=== PATIENT | male | born 1995 | race Caucasian/White ===

== ENCOUNTER 2022-09-22 | Emergency (ER) | payer SELFPAY ==
[~2022-09-22] VITALS: Ht 188 cm; Wt 145.0 kg
[2022-09-22] MEDS ORDERED: EPIPEN 2-P0.3 MG/0.3 SC (01:16)
[2022-09-22 01:37] VITALS: BP 107/84
== END 2022-09-22 02:16 | disposition home or self-care (01) | DRG 918 ==
LOC: ED
DX: T63.4 Toxic effect of venom of other arthropods (principal); F17.290 Nicotine dependence, other tobacco product, uncomplicated